=== PATIENT | female | born 1970 | race African-American/Black ===

== ENCOUNTER 2017-01-20 21:54 | Emergency (ER) | payer BC, OTHER ==
[~2017-01-20] VITALS: Ht 170.2 cm; Wt 80.3 kg
[~2017-01-20 21:54] MED LIST: CIPRO500 MG PO; NAPROXEN375 MG PO; NKM; NORCO 5-325 TA1 EACH ORAL
[2017-01-20 22:00] VITALS: BP 129/91
[2017-01-20 22:40] VITALS: BP 129/91
--- NOTE | 2017-01-21 04:00 | Emergency Room Report ---
History of Present Illness General Chief Complaint: Behavioral Complaint Source: Patient Present Illness HPI 46-year-old female presents to ED for evaluation. Per EMS patient called 911 because she felt she was having an anxiety attack. States her heart started racing suddenly. Full tremulous and shaky. Upon arrival patient states she feels better. No longer is having palpitations. Patient states she has history of anxiety in the past but never took medication. Patient's not sure why she had an anxiety attack at this time. Denies any suicidal or homicidal ideation. Denies feeling depressed or hearing voices. Denies drug use. No other aggravating relieving factors. Denies any other associated symptoms Allergies: Coded Allergies: No Known Allergies (Unverified , 06/27/12) Patient History Past Medical History: none Past Surgical History: none Pertinent Family History: none Social History: Denies: alcohol use, drug use, smoking Last Menstrual Period: n/a Now: No Immunizations: UTD Reviewed Nursing Documentation: PMH: Agreed, PSxH: Agreed Nursing Documentation-PMH Past Medical History: No Stated History Hx Gastrointestinal Problems: Yes - hx ovarian cyst 2006 Review of Systems All Other Systems: negative except mentioned in HPI Physical Exam Vital Signs Date Time Temp Pulse Resp B/P Pulse Ox O2 Delivery O2 Flow Rate FiO2 01/20/17 21:49 97.7 88 16 129/91 100 Room Air Sp02 EP Interpretation: reviewed, normal General Appearance: no apparent distress, alert, GCS 15, non-toxic Head: normocephalic, atraumatic Eyes: bilateral eye PERRL, bilateral eye normal inspection ENT: hearing grossly normal, normal pharynx, no angioedema, normal voice Neck: full range of motion, supple/symm/no masses Respiratory: chest non-tender, lungs clear, normal breath sounds, speaking full sentences Cardiovascular #1: regular rate, rhythm, no edema Cardiovascular #2: 2+ carotid (R), 2+ carotid (L), 2+ radial (R), 2+ radial (L) , 2+ dorsalis pedis (R), 2+ dorsalis pedis (L) Gastrointestinal: normal bowel sounds, non tender, soft, non-distended, no guarding, no rebound Rectal: deferred Genitourinary: normal inspection, no CVA tenderness Musculoskeletal: back normal, gait/station normal, normal range of motion, non- tender Neurologic: alert, oriented x3, responsive, motor strength/tone normal, sensory intact, speech normal Psychiatric: judgement/insight normal, memory normal, no suicidal/homicidal ideation, anxious Reflexes: 3+ bicep (R), 3+ bicep (L), 3+ tricep (R), 3+ tricep (L), 3+ knee (R) , 3+ knee (L) Skin: normal color, no rash, warm/dry, well hydrated Lymphatic: no adenopathy Medical Decision Making Diagnostic Impression: Primary Impression: Anxiety Additional Impression: Palpitations ER Course Hospital Course 46-year-old female presents ED complaining of heart palpitations, feeling shaky and anxious Differential diagnoses include: [place]/unstable angina, dehydration, anxiety Clinical course Patient placed on stretcher. on cardiac surgeon. After initial history physical exam reveals a middle-aged female in no acute distress. She states she feels anxious but feels better. Physical exam is unremarkable EKG shows normal sinus rhythm and no acute changes interpreted by myself Upon reassessment patient is observed feeling better. Patient states she was like to be discharged. I offered patient options for discussion of low dose Xanax but patient declined. States she will followup with PMD I. I feel this is a highly complex case requiring extensive working including EKG/Rhythm strip, Xray/CT/US, Blood/urine lab work, repeat exams while in ED, and administration of strong opiates/narcotics for pain control, admission to hospital or close patient follow up. Diagnosis - anxiety, palptiations Stable and discharged to home. Followup with PMD. Return to ED if symptoms recur or worse Last Vital Signs Date Time Temp Pulse Resp B/P Pulse Ox O2 Delivery O2 Flow Rate FiO2 01/20/17 21:49 97.7 88 16 129/91 100 Room Air Status: improved Disposition: HOME, SELF-CARE Condition: Stable Referrals: [facility],REFERRING (PCP) Patient Instructions: Palpghazal, [id number] TAISHA DUMONT M.D. Jan 21, 2017 04:00
== END 2017-01-20 22:40 | disposition home or self-care (01) ==
LOC: EDBD 21:54 → EMR 22:20
DX: F41.9 Anxiety disorder, unspecified (principal); R00.2 Palpitations
CPT/HCPCS: 93005; 99283